=== PATIENT | male | born 2000 | race Caucasian/White ===

== ENCOUNTER → 2018-02-15 17:09 | Outpatient (CLI) | payer OTHER, SELFPAY ==
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
== END ==
PROVIDERS: Visit Provider Registered Nurse Diabetes Educator
DX: S69.91XA Unspecified injury of right wrist, hand and finger(s), initial encounter (principal)
CPT/HCPCS: 73218

== ENCOUNTER 2022-03-17 12:12 | Emergency (ER) | payer SELFPAY ==
[2022-03-17 12:29] VITALS: BP 146/94; PULSE 58; RESP 18; TEMP 36.7; O2SAT 97; BMI 41.5
--- NOTE | 2022-03-17 13:00 | ED.URI ---
HPI - URI/Sore Throat <Behzad Tsang PA-C - Last Filed: 03/17/22 13:08> General Chief Complaint: Upper Respiratory Symptoms Stated Complaint: COVID + NEEDS DOCTOR NOTE Time Seen by Provider: 03/17/22 12:45 Source: patient Mode of arrival: Ambulatory History of Present Illness HPI Narrative: Pt is a 21 y/o male presents to the ED reporting a positive home COVID test from 3 days ago. He reports that he is required to show proof to return back to work. He is having c/o headaches, fatigues, sore throat and cough. He denies any shortness of breath, chest pain, nausea, vomiting, diarrhea. He is current on his COVID vaccine and booster. He has been at home for the past 3 days. Related Data Previous Rx's Medication Instructions Recorded bupropion HCl 100 mg tablet,12 hr 100 mg PO BID Deprssion & ADHD 01/10/19 sustained-release (Wellbutrin SR) #180 tabs citalopram 40 mg tablet 40 mg PO QDAY Depression #90 tabs 01/10/19 doxycycline hyclate 100 mg tablet 100 mg PO QAM ACNE #90 tabs 01/10/19 lisdexamfetamine 70 mg capsule 70 mg PO QAM ADHD #90 caps 01/10/19 (Vyvanse) Allergies Allergy/AdvReac Type Severity Reaction Status Date / Time No Known Drug Allergies Allergy Verified 03/17/22 12:34 Review of Systems <Behzad Tsang PA-C - Last Filed: 03/17/22 13:08> Review of Systems ROS Unobtainable: All systems reviewed & are unremarkable except as noted in HPI and below Constitutional Constitutional: Denies chills, Reports fatigue, Reports fever(s), Denies frequent falls, Reports lethargy and Denies weakness Eyes Eyes: Denies change in vision, Denies eye discharge, Denies irritation and Denies loss of vision ENT Ears, Nose, Mouth, and Throat: Denies change in voice, Denies dizziness, Denies neck pain, Denies sore throat and Denies throat swelling Cardiovascular Cardiovascular: Denies chest pain, Denies irregular heart rhythm, Denies lightheadedness, Denies palpitations, Denies dyspnea, Denies dyspnea on exertion and Denies orthopnea Respiratory Respiratory: Denies cough, Denies dyspnea, Denies dyspnea on exertion and Denies wheezing Gastrointestinal Gastrointestinal: Denies abdominal pain, Denies change in bowel habits, Denies diarrhea, Denies nausea and Denies vomiting Genitourinary Genitourinary: Denies hematuria, Denies flank pain, Denies urinary incontinence and Denies urinary urgency Musculoskeletal Musculoskeletal: Denies back pain, Denies muscle weakness, Denies neck pain, Denies numbness and Denies tingling Integumentary/Breasts Skin/Breast: Denies pruritus, Denies erythema, Denies rash and Denies wounds Neurologic Neurologic: Denies behavioral changes, Denies confusion, Denies dizziness, Denies frequent falls, Denies loss of vision, Denies numbness, Denies tingling and Denies weakness Psychiatric Psychiatric: Denies anxiety, Denies behavioral changes, Denies confusion, Denies depression, Denies homicidal ideation and Denies suicidal ideation Endocrine Endocrine: Reports fatigue, Denies flushing and Denies palpitations Hematologic/Lymphatic Hematologic/Lymphatic: Denies easy bruising Allergic/Immunologic Allergic/Immunologic: Denies urticaria, Denies throat swelling and Denies wheezing Patient History <Behzad Tsang PA-C - Last Filed: 03/17/22 13:08> Social History Smoking Status: Current every day smoker Smoking Status: Current every day smoker tobacco type: vaping alcohol intake frequency: 0-2 drinks per day Substance Use Type: does not use Exam <Behzad Tsang PA-C - Last Filed: 03/17/22 13:08> Initial Vital Signs Initial Vital Signs: Vital Signs Temperature 98.0 F 03/17/22 12:29 Pulse Rate 58 L 03/17/22 12:29 Respiratory Rate 18 03/17/22 12:29 Blood Pressure 146/94 H 03/17/22 12:29 Pulse Oximetry 97 03/17/22 12:29 Oxygen Delivery Method 03/17/22 12:29 Const General: cooperative, healthy appearing, comfortable and well developed Nutritional Appearance: average body habitus Orientation: Orientation [facility] Head: normal to inspection, normocephalic and atraumatic Ears: hearing grossly normal bilaterally, external ears normal and TM's normal bilaterally Nose: external nose normal, nares normal and nasal mucous membranes and turbinates normal Face and sinus: normal facial exam Mouth: oral mucosae normal Teeth and gingiva: dentition normal and gingiva normal Throat: posterior oropharynx abnormal erythema Eyes General: Yes appearance normal, both eyes and all related structures Pupils: PERRL Resp Effort & Inspection: normal respiratory effort and able to speak in complete sentences Auscultation: clear to auscultation bilaterally Cardio Palpation: normal PMI Rate: regular rate Rhythm: regular rhythm Heart Sounds: S1 normal and S2 normal GI Inspection: normal to inspection Palpation: soft and no hepatosplenomegaly Percussion: normal to percussion Auscultation: normal bowel sounds Skin General: no rashes or lesions noted Neuro General: patient alert, patient awake, patient oriented x3, gait normal, tone normal, moves all extremities, no meningeal signs, no focal motor deficits and CN's II-XI intact bilaterally <Елена Mejia DO - Last Filed: 03/18/22 09:06> Initial Vital Signs Initial Vital Signs: Vital Signs Temperature 98.0 F 03/17/22 12:29 Pulse Rate 58 L 03/17/22 12:29 Respiratory Rate 18 03/17/22 12:29 Blood Pressure 146/94 H 03/17/22 12:29 Pulse Oximetry 97 03/17/22 12:29 Oxygen Delivery Method 03/17/22 12:29 Course <CONCEPCION Pryor Last Filed: 03/17/22 13:08> Vital Signs Vital signs: Vital Signs - 8 hr 03/17/22 12:29 Temperature 98.0 F Pulse Rate 58 L Respiratory Rate 18 Blood Pressure 146/94 H Pulse Oximetry 97 Oxygen Delivery Method Room Air <DO Willie Moses Last Filed: 03/18/22 09:06> Vital Signs Vital signs: Vital Signs - 8 hr 03/17/22 12:29 Temperature 98.0 F Pulse Rate 58 L Respiratory Rate 18 Blood Pressure 146/94 H Pulse Oximetry 97 Oxygen Delivery Method Room Air MDM - URI/Sore Throat <CONCEPCION Pryor Last Filed: 03/17/22 13:08> Differential Diagnosis Differential diagnosis: Likely viral infection MDM Narrative Medical decision making narrative: Pt was seen for suspected COVID infection, pt confirmed that he took a home test and tested positive two days ago. He is not a good candidate for the antiviral medication at this time. He can stay at home and return to work in a couple more days. return to work on will meet the required 5 days off work. Pt will be discharged home Discharge Plan Departure Patient Disposition: Home Clinical Impression: COVID-19 Instructions: DI for COVID-19 (Suspected or Confirmed ) Activity Restrictions/Additional Instructions: You can return to work on , please continue to socially distance and wear a mask. Wash you hands frequently and take Ibuprofen or Tylenol for fever and body aches. Thank you for the opportunity to care for you today. Prescriptions: No Action Vyvanse 70 mg capsule 70 mg PO QAM MDD 70mg Qty: 90 0RF Rx Instructions: Take 1 cap mornings for Adult ADD 90-day supply citalopram 40 mg tablet 40 mg PO QDAY MDD 40mg Qty: 90 1RF Rx Instructions: 90-day supply bupropion HCl [Wellbutrin SR] 100 mg tablet sustained-release 12 hr 100 mg PO BID MDD 200mg Qty: 180 1RF Rx Instructions: 90-day supply doxycycline hyclate 100 mg tablet 100 mg PO QAM MDD 100mg Qty: 90 1RF Rx Instructions: 90-day supply Stand Alone Forms: Work Release Note Visit Report Forms: Patient Portal/API <Елена Mejia DO - Last Filed: 03/18/22 09:06> Yoshi ED Attending Yoshiature Attestation: I was immediately available in the department for consultation. Documentation has been reviewed. I agree with assessment and plan.
[2022-03-17 13:14] VITALS: BP 139/95; PULSE 74; RESP 18; O2SAT 98
== END 2022-03-17 13:15 | disposition home or self-care (01) ==
PROVIDERS: Emergency Provider Physician Assistant
DX: U07.1 COVID-19 (principal)
CPT/HCPCS: 99281

== ENCOUNTER 2022-10-17 14:34 | Emergency (ER) | payer OTHER, SELFPAY ==
[2022-10-17 15:17] VITALS: BP 148/82; PULSE 72; RESP 18; TEMP 36.6; O2SAT 99; BMI 49.9
[2022-10-17] MEDS: TET,DIPH,PERTUSS(ACELL),VAC/PF 0.5 ML SYRINGE IM (16:36)
--- NOTE | 2022-10-17 17:22 | ED.WOUNDLAC ---
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 The wound was profusely bleeding, which prompted today's ER visit for further management, patient states he does not normally bruise easily It is L&I referral. Onset (ago): hour(s) (2) Location: other (right thumb fingertip) Related Data Previous Rx's Medication Instructions Recorded bupropion HCl 100 mg tablet,12 hr 100 mg PO BID Deprssion & ADHD 01/10/19 sustained-release (Wellbutrin SR) #180 tabs citalopram 40 mg tablet 40 mg PO QDAY Depression #90 tabs 01/10/19 doxycycline hyclate 100 mg tablet 100 mg PO QAM ACNE #90 tabs 01/10/19 lisdexamfetamine 70 mg capsule 70 mg PO QAM ADHD #90 caps 01/10/19 (Vyvanse) Allergies Allergy/AdvReac Type Severity Reaction Status Date / Time No Known Drug Allergies Allergy Verified 10/17/22 15:16 Review of Systems <Farzana Harrell PA-C - Last Filed: 10/17/22 18:21> Review of Systems Narrative: 12 point review of systems is negative except for those stated above Patient History <Farzana Harrell PA-C - Last Filed: 10/17/22 18:21> Social History Smoking Status: Current every day smoker Smoking Status: Current every day smoker tobacco type: vaping alcohol intake frequency: 0-2 drinks per day Substance Use Type: does not use Exam <Farzana Harrell PA-C - Last Filed: 10/17/22 18:21> Narrative Exam Narrative: GENERAL: 22 year old patient appears stated age. Well-developed patient, in no acute distress. HEAD: Atraumatic. Normocephalic. EYES: Pupils equal round and reactive. Extraocular motions intact. No scleral icterus. No injection or drainage. ENT: Nose without bleeding, purulent drainage. Throat without erythema, tonsillar hypertrophy or exudate. Airway patent. NECK: Trachea midline. Non tender NEURO: no focal deficits, light touch finger intact SKIN: No rash or erythema of visible areas the right distal phalange rt 1 st digit with shaved off laceration approximately 4 mm in DI bleeding profusely Initial Vital Signs Initial Vital Signs: Vital Signs Temperature 97.8 F 10/17/22 15:17 Pulse Rate 72 10/17/22 15:17 Respiratory Rate 18 10/17/22 15:17 Blood Pressure 148/82 H 10/17/22 15:17 Pulse Oximetry 99 10/17/22 15:17 Oxygen Delivery Method 10/17/22 15:17 <Елена Mejia DO - Last Filed: 10/18/22 12:58> Initial Vital Signs Initial Vital Signs: Vital Signs Temperature 97.8 F 10/17/22 15:17 Pulse Rate 72 10/17/22 15:17 Respiratory Rate 18 10/17/22 15:17 Blood Pressure 148/82 H 10/17/22 15:17 Pulse Oximetry 99 10/17/22 15:17 Oxygen Delivery Method 10/17/22 15:17 Procedures <CONCEPCION Fay Last Filed: 10/17/22 18:21> Laceration Repair Laceration 1: Site: hand Side (If applicable): right (1 st DIP) Size (cm): 0.4 Description: other (shaved off to basal layer ) Depth: simple, single layer (less then 2 mm ) Pre-repair: irrigated extensively, deep structures intact and cleansed with chlorhexadine (then silver nitrate applied and superficial blood vessels were cauterized, AB ointment applied, hemorrhaging stopped ) Course <CONCEPCION Fay Last Filed: 10/17/22 18:21> Orders Ordered: Discontinued Medications Diphtheria/Tetanus/Acell Pertussis (Tet,Diph,Pertuss(Acell),Vac/Pf 0.5 Ml Syringe) 0.5 ml IM .ONCE ONE Stop: 10/17/22 15:22 Last Admin: 10/17/22 16:36 Dose: 0.5 ml Documented By: RL Silver Nitrate/Potassium Nitrate (Silver Nitrate Stick) 2 each TOP NOW ONE Stop: 10/17/22 17:32 Last Admin: 10/17/22 17:36 Dose: 2 each Documented By: NR Vital Signs Vital signs: Vital Signs - 8 hr 10/17/22 15:17 Temperature 97.8 F Pulse Rate 72 Respiratory Rate 18 Blood Pressure 148/82 H Pulse Oximetry 99 Oxygen Delivery Method Room Air <Елена Mejia DO - Last Filed: 10/18/22 12:58> Orders Ordered: Discontinued Medications Diphtheria/Tetanus/Acell Pertussis (Tet,Diph,Pertuss(Acell),Vac/Pf 0.5 Ml Syringe) 0.5 ml IM .ONCE ONE Stop: 10/17/22 15:22 Last Admin: 10/17/22 16:36 Dose: 0.5 ml Documented By: MAUREEN Silver Nitrate/Potassium Nitrate (Silver Nitrate Stick) 2 each TOP NOW ONE Stop: 10/17/22 17:32 Last Admin: 10/17/22 17:36 Dose: 2 each Documented By: NR Vital Signs Vital signs: Vital Signs - 8 hr 10/17/22 15:17 Temperature 97.8 F Pulse Rate 72 Respiratory Rate 18 Blood Pressure 148/82 H Pulse Oximetry 99 Oxygen Delivery Method Room Air MDM - Wound/Laceration <Farzana Harrell PA-C - Last Filed: 10/17/22 18:21> MDM Narrative Medical decision making narrative: discussed with patient diagnosis and treatment advised on follow up and self wound care Patient's symptoms improved over duration of stay with above-stated therapies. Findings and discharge diagnosis discussed with patient followed by verbalization of understanding Return precautions discussed with patient/family whom verbalize understanding of diagnosis and plan L&I documentation filled out Discharge Plan Departure Patient Disposition: Home Clinical Impression: Laceration of thumb without damage to nail Instructions: DI for Minor Laceration Activity Restrictions/Additional Instructions: *You have been diagnosed with laceration of right thumb superficial as a result of work related injury *What to do: *Please continue to take your regular medications as directed. No new medications given the laceration was chemically cauterized using Silver Nitrate stick, and dressing applied The dressing can come off in 24 hrs, after which triple antibiotic ointment can be applied to the finger tip several times a day untill laceration is healed try to avoid frequent hand washing for next several days allowing for laceration to heal *Return to Emergency Department if you should have any new, worsening or concerning symptoms, such as bleeding, worsening pain, redness, discharge or other bothersome symptoms Prescriptions: No Action Vyvanse 70 mg capsule 70 mg PO QAM MDD 70mg Qty: 90 0RF Rx Instructions: Take 1 cap mornings for Adult ADD 90-day supply citalopram 40 mg tablet 40 mg PO QDAY MDD 40mg Qty: 90 1RF Rx Instructions: 90-day supply bupropion HCl [Wellbutrin SR] 100 mg tablet sustained-release 12 hr 100 mg PO BID MDD 200mg Qty: 180 1RF Rx Instructions: 90-day supply doxycycline hyclate 100 mg tablet 100 mg PO QAM MDD 100mg Qty: 90 1RF Rx Instructions: 90-day supply Stand Alone Forms: Patient Portal/API, Work Release Note <Елена Mejia DO - Last Filed: 10/18/22 12:58> Cosign ED Attending Yoshiature Attestation: I was immediately available in the department for consultation. Documentation has been reviewed.
[2022-10-17] MEDS: SILVER NITRATE STICK 2 EACH TOP (17:36)
[2022-10-17 18:11] VITALS: BP 160/101; PULSE 70; RESP 16; O2SAT 95
== END 2022-10-17 18:14 | disposition home or self-care (01) ==
PROVIDERS: Emergency Provider Physician Assistant Medical
DX: S61.011A Laceration without foreign body of right thumb without damage to nail, initial encounter (principal); W26.0XXA Contact with knife, initial encounter; Z23 Encounter for immunization; Y99.0 Civilian activity done for income or pay
CPT/HCPCS: 12001; 90471; 99283; 90715

== ENCOUNTER 2024-07-12 16:08 | Emergency (ER) | payer OTHER, SELFPAY ==
[2024-07-12 16:16] VITALS: BP 180/111; PULSE 76; RESP 17; TEMP 36.6; O2SAT 98; BMI 52.7
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
--- NOTE | 2024-07-12 17:56 | ED_ITS ---
HPI - Trauma <Jazmine Ramires PA-C - Last Filed: 07/14/24 11:03> General Chief Complaint: Nasal Problem Stated Complaint: smacked in nose with power tool Time Seen by Provider: 07/12/24 17:42 Source: patient Mode of arrival: Ambulatory History of Present Illness HPI narrative: Patient is a very pleasant 24-year-old male brought into the emergency department by his mother with facial discomfort and pain. The patient was at work today, he was assisting a fellow co-worker attempting to distal assemble a power tool that had a brush on it. The patient was attempting to disassembled it, unfortunately he did not know that the power tool was still attached to power. He unfortunately ended up pushing the button to run the power tool and it flipped back and jerked back and struck him in the right side of his face causing facial trauma. He presents to the emergency room department with soft tissue swelling and pain to the right maxillary area and right nose. With a noticeable laceration to the inside of the left nasal passage. He has discomfort with opening and closing his mouth. He did not fall, he had no loss of consciousness, he has no eye injury. He has no other physical complaints currently at this time. Some ice prior to being seen here in the emergency department. No other further complaints. Related Data Previous Rx's Medication Instructions Recorded amoxicillin 875 mg-potassium 1 tab PO BID #20 tabs 07/12/24 clavulanate 125 mg tablet Allergies Allergy/AdvReac Type Severity Reaction Status Date / Time No Known Drug Allergies Allergy Verified 10/17/22 15:16 Review of Systems <Jazmine Ramires PA-C - Last Filed: 07/14/24 11:03> Review of Systems Narrative: Negative except as above ENT Comments: Right nares laceration inside his nose Musculoskeletal Comments: Right-sided facial pain and swelling Patient History <Jazmine Ramires PA-C - Last Filed: 07/14/24 11:03> Social History Smoking Status: Current every day smoker Smoking Status: Current every day smoker tobacco type: vaping alcohol intake frequency: a few times a week Substance Use Type: does not use Exam <Jazmine Ramires PA-C - Last Filed: 07/14/24 11:03> Initial Vital Signs Initial Vital Signs: Vital Signs Temperature 98 F 07/12/24 16:16 Pulse Rate 76 07/12/24 16:16 Respiratory Rate 17 07/12/24 16:16 Blood Pressure 180/111 H 07/12/24 16:16 Pulse Oximetry 98 07/12/24 16:16 Oxygen Delivery Method Room Air 07/12/24 16:16 Reviewed Const General: cooperative, healthy appearing, comfortable, well developed, well groomed, No acute distress, in distress, anxious, No frail appearing, No ill appearing and No intoxicated appearing [facility] Head: normal to inspection, normocephalic, atraumatic, abrasion, No raccoon eyes and No periorbital ecchymosis Ears: hearing grossly normal bilaterally, external ears normal, TM's normal bilaterally, TM normal on the right and TM normal on the left Nose: external nose normal, septum normal and other (Laceration 0.5 cm to the right base of the right nares) Face and sinus: face symmetric and tenderness (Tenderness over the right maxillary area, no pain over the sinus, no pain o) Mouth: oral mucosae normal, lip normal, tongue normal, oropharynx normal and moist mucous membranes Teeth and gingiva: dentition normal and gingiva normal Throat: posterior oropharynx normal and uvula midline Eyes General: Yes appearance normal, both eyes and all related structures Pupils: PERRL EOM: EOM intact bilaterally Neck Neck: normal visual inspection, trachea midline and supple Skin Other: Warm pink and dry, laceration as above Neuro General: patient alert, patient awake, patient oriented x3, oriented, gait normal and tone normal Cranial Nerves: CN's II-XI intact bilaterally, sense of smell intact and PERRL Cognition: normal cognition Speech: speech normal Gait: normal gait Motor: muscle tone normal throughout Extrem Other: Range of motion, strength, pulses, cap refill preserved in the upper and lower extremities Psych Other: Appearance, mental status, speech, movement, mood, affect, attitude, thought process, thought, and judgment are all within normal limits <Malachi Sharp MD - Last Filed: 07/14/24 16:28> Initial Vital Signs Initial Vital Signs: Vital Signs Temperature 98 F 07/12/24 16:16 Pulse Rate 76 07/12/24 16:16 Respiratory Rate 17 07/12/24 16:16 Blood Pressure 180/111 H 07/12/24 16:16 Pulse Oximetry 98 07/12/24 16:16 Oxygen Delivery Method Room Air 07/12/24 16:16 Procedures <Jazmine Ramires PA-C - Last Filed: 07/14/24 11:03> Laceration Repair Laceration 1: Time of procedure: 20:39 Site: face (Right nares) Side (If applicable): right Size (cm): 5 Description: irregular Depth: simple, single layer Local Anesthetic: lidocaine 1% Amount of anesthesia used (mL): 1 Skin layer closed with: other (Five 0 acromion) Skin layer suture size: 5-0 Number of sutures: 3 Technique: simple, interrupted Scores <Jazmine Ramires PA-C - Last Filed: 07/14/24 11:03> GCS Citation: 15 Course <Jazmine Ramires PA-C - Last Filed: 07/14/24 11:03> Orders Ordered: Discontinued Medications Ondansetron HCl (Ondansetron 4 Mg Odt) 4 mg SL NOW ONE Stop: 07/12/24 20:19 Last Admin: 07/12/24 20:38 Dose: 4 mg Documented By: Silver Nitrate/Potassium Nitrate (Silver Nitrate Stick) 1 each TOP NOW ONE Stop: 07/12/24 17:49 Consultations Consultation #1: Dr. Weston ENT on-call Looked at the CT scan and I sent him pictures of the laceration Suggested I placed the patient on Augmentin Suggested that I wash the laceration out with an Angiocath and Betadine and water which I did Laceration was washed out copious amounts of Betadine and water patient tolerated the procedure as well as he possibly could. This was done after actually anesthetized the laceration Laceration repair to the right nostril under laceration repair patient tolerated the procedure as well as he could absorbable sutures were used. Three sutures were placed Vital Signs Vital signs: Vital Signs - 8 hr 07/12/24 16:16 07/12/24 18:15 Temperature 98 F 98.3 F Pulse Rate 76 66 Respiratory Rate 17 16 Blood Pressure 180/111 H 146/87 H Pulse Oximetry 98 98 Oxygen Delivery Method Room Air Room Air Reviewed <Malachi Sharp MD - Last Filed: 07/14/24 16:28> Orders Ordered: Discontinued Medications Ondansetron HCl (Ondansetron 4 Mg Odt) 4 mg SL NOW ONE Stop: 07/12/24 20:19 Last Admin: 07/12/24 20:38 Dose: 4 mg Documented By: Silver Nitrate/Potassium Nitrate (Silver Nitrate Stick) 1 each TOP NOW ONE Stop: 07/12/24 17:49 Vital Signs Vital signs: Vital Signs - 8 hr 07/12/24 16:16 07/12/24 18:15 Temperature 98 F 98.3 F Pulse Rate 76 66 Respiratory Rate 17 16 Blood Pressure 180/111 H 146/87 H Pulse Oximetry 98 98 Oxygen Delivery Method Room Air Room Air MDM - Trauma <Jazmine Ramires PA-C - Last Filed: 07/14/24 11:03> Imaging Data ct face: Radiologist's Impression: [place] [address] CT Scan Report Signed Patient: Germain Villarreal MR#: [id number] : 2000 Acct:[id number] Age/Sex: 24 / M Date of Service: 07/12/24 Loc: ED Accession Number: [id number] Procedure: CT facial bones wo con Ordering Provider: Jazmine Ramires PA-C PROCEDURE: CT FACIAL BONES WO CON INDICATIONS: Smacked in the face right side lac to the inside of right TECHNIQUE: Noncontrast 2.5 mm thick axial images acquired from the mandible through the frontal sinuses, with coronal and sagittal reformatting. For radiation dose reduction, the following was used: automated exposure control, adjustment of mA and/or kV according to patient size. COMPARISON: None. FINDINGS: Image quality: Excellent. Bones and teeth: Orbital morfin are intact. Sinus morfin show no fracture or deformity. Nasal bones and septum are intact. Visualized portions of the mandible demon strate no fractures or subluxation. Zygomatic arches are intact. Pterygoid plates are intact. Visualized portions of the skull base and auditory canals are intact. Sinuses: Paranasal sinuses are aerated, without fluid levels, mucosal thickening, or mucoceles. Mastoid air cells are aerated. Soft tissues: Soft tissue swelling and soft tissue gas can be seen within the right pre maxillary region. No radiopaque foreign bodies are seen. Vascular: Visualized vascular structures appear normal in the absence of contrast. Bony vascular foramina and canals are intact. IMPRESSION: Abnormal soft tissue gas can be seen within the right pre maxillary region, which is consistent with the given history of a significant laceration. No radiopaque foreign bodies are seen. No associated fracture is seen. Dictated by: Malvin Medina M.D. on 07/12/2024 at 17:31 Approved by: Malvin Medina M.D. on 07/12/2024 at 17:[address] [facility] Narrative Medical decision making narrative: Pleasant 24-year-old male who unfortunately sustained a trauma to the face after being struck by a power tool at work. Sustained trauma to the right side of his face with soft tissue swelling, and pain. And a laceration to the inside of the right nasal passage. Exam showed soft tissue swelling, tenderness, no laceration. CT scan showed no fracture but free air in the face, ENT was contacted. Please see my consultation information education above. His suggestions were followed. Laceration was repaired as above. Patient placed on Augmentin. Patient tolerated multiple procedures as well as he possibly could due to the intensity of the procedures. L and I paperwork filled out. After a long stay here in the fast track area the patient was discharged in stable condition with his mother who drove him home. Close follow up, return to the emergency room department as needed. Follow up with ENT as needed Differential diagnosis, facial contusion, nasal laceration, L and I injury, concussion, maxillary bone contusion. Discharge Plan Departure Patient Disposition: Home Clinical Impression: Contusion of face Qualifiers: Encounter type: initial encounter Qualified Code(s): S00.83XA - Contusion of other part of head, initial encounter Laceration of nose Qualifiers: Encounter type: initial encounter Qualified Code(s): S01.21XA - Laceration without foreign body of nose, initial encounter Activity Restrictions/Additional Instructions: Ice to the face Please pick out hand the prescription, please complete the prescription Sutures are dissolvable No fractures on CT scan Ibuprofen or Tylenol for discomfort and pain L and I paperwork filled out Prescriptions: New amoxicillin-pot clavulanate 875-125 mg tablet 1 tab PO BID Qty: 20 0RF Stand Alone Forms: Patient Portal/API ED Sign-out <aMlachi Sharp MD - Last Filed: 07/14/24 16:28> Cosign ED Attending Cosignature Attestation: I was immediately available in the department for consultation. Malachi Sharp MD
[2024-07-12 18:15] VITALS: BP 146/87; PULSE 66; RESP 16; TEMP 36.8; O2SAT 98
[2024-07-12] MEDS: ONDANSETRON 4 MG ODT SL (20:38)
[2024-07-12 20:45] VITALS: BP 144/65; PULSE 85; RESP 18; TEMP 36.9; O2SAT 99
== END 2024-07-12 20:45 | disposition home or self-care (01) ==
PROVIDERS: Emergency Provider Physician Assistant
DX: S01.21XA Laceration without foreign body of nose, initial encounter (principal); S00.83XA Contusion of other part of head, initial encounter; W22.8XXA Striking against or struck by other objects, initial encounter
CPT/HCPCS: 12013; 70486; 99283; 99284